=== PATIENT | female | born 1960 | race Two or more races ===

== ENCOUNTER 2023-08-06 16:27 | Emergency (ER) | payer MEDICARE, OTHER ==
[~2023-08-06] VITALS: Ht 165.1 cm; Wt 56.7 kg
[2023-08-06 16:47] VITALS: BP 109/66
[2023-08-06] MEDS ORDERED: oxyCODONE/APAP (5/325 MG) 1 UDTAB TABLET PO ONE (17:30)
[2023-08-06] MEDS ORDERED: HYDROCODONE/APAP 5/325MG TABLET ONE (17:37)
[2023-08-06] MEDS ORDERED: oxyCODONE/APAP (5/325 MG) 1 UDTAB TABLET ONE (17:40)
[2023-08-06 18:27] VITALS: TEMP 98.7; O2SAT 100
== END 2023-08-06 18:28 | disposition home or self-care (01) ==
LOC: ER 16:54
DX: M79.672 Pain in left foot (principal)

== ENCOUNTER 2024-03-03 21:16 | Emergency (ER) | payer MEDICARE, OTHER ==
[~2024-03-03] VITALS: Ht 167.6 cm; Wt 63.5 kg
[2024-03-03 21:21] VITALS: TEMP 98.8
[2024-03-03] MEDS ORDERED: KETOROLAC TROMETHAMINE INJ 30 MG/ML VIAL ONE (21:42)
[2024-03-03] MEDS: KETOROLAC TROMETHAMINE INJ 30 MG/ML VIAL IV ONE (21:55)
[2024-03-04] MEDS ORDERED: LIDOCAINE 1% INJ 50 ML MDV IJ ONE (00:20)
[2024-03-04] MEDS ORDERED: LIDOCAINE /MPF 1% VIAL 5 ML VIAL ONE (00:26)
[2024-03-04 00:48] VITALS: BP 123/81; O2SAT 99
== END 2024-03-04 00:49 ==
LOC: ER 21:23
DX: M25.551 Pain in right hip (principal); Z88.5 Allergy status to narcotic agent; Z88.2 Allergy status to sulfonamides
CPT/HCPCS: 99283; 96372; 73502; J1885; J3490

== ENCOUNTER 2024-12-15 18:47 | Emergency (ER) | payer MEDICARE, OTHER ==
[~2024-12-15] VITALS: Ht 167.6 cm; Wt 65.3 kg
[2024-12-15] MEDS ORDERED: LEVETIRACETAM (500MG) 500 MG/5 ML VIAL IV ONE (19:33)
[2024-12-15] MEDS ORDERED: HYDROMORPHONE 1 MG/1 ML DISP.SYRIN ONE (19:34)
[2024-12-15] MEDS: HYDROMORPHONE 1 MG/1 ML DISP.SYRIN IV ONE (19:36)
[2024-12-15] MEDS: LEVETIRACETAM (500MG) 1,000 MG in IV NS 0.9% 90 ML IV SCH (19:36)
[2024-12-15] MEDS: LORAZEPAM INJ 2 MG/ML VIAL IV ONE (20:17)
[2024-12-15] MEDS ORDERED: LORAZEPAM INJ 2 MG/ML VIAL ONE (20:17)
[2024-12-15 20:50] LABS: BASOPHILS # (AUTO) 0.1 K/uL (0.0-0.2); BASOPHILS % (AUTO) 1.5 % (0.0-2.0); EOSINOPHILS # (AUTO) 0.2 K/uL (0.0-0.7); EOSINOPHILS % (AUTO) 4.1 % (0.0-6.0); HEMATOCRIT 34 % (33-45); HEMOGLOBIN 11.4 g/dL (11.5-14.8); LYMPHOCYTES # (AUTO) 2.1 K/uL (0.8-4.8); LYMPHOCYTES % (AUTO) 38.7 % (20.0-44.0); MEAN CORPUSCULAR HEMOGLOBIN 30 PG (26.0-33.0); MEAN CORPUSCULAR HGB CONC 34 g/dl (31.0-36.0); MEAN CORPUSCULAR VOLUME 87 fL (82-100); MONOCYTES # (AUTO) 0.7 K/uL (0.1-1.30); MONOCYTES % (AUTO) 12.3 % (2.0-12.0); NEUTROPHILS # (AUTO) 2.3 K/uL (1.8-8.9); NEUTROPHILS % (AUTO) 43.4 % (43.0-81.0); PLATELET COUNT (AUTO) 201 K/uL (150-450); RED BLOOD CELL COUNT(AUTO) 3.85 MIL/uL (4.0-5.2); WHITE BLOOD COUNT (AUTO) 5.3 K/uL (4.3-11.0)
[2024-12-15 21:00] LABS: CALCIUM, SERUM 8.2 mg/dL (8.5-10.1); CREATININE 0.8 mg/dL (0.6-1.3); POTASSIUM 4.1 mmol/L (3.5-5.1)
[2024-12-15 22:36] VITALS: BP 120/77; TEMP 98.2; O2SAT 99
== END 2024-12-15 22:37 | disposition home or self-care (01) ==
LOC: ER 18:55
DX: G40.89 Other seizures (principal); G89.29 Other chronic pain; M25.512 Pain in left shoulder; C92.10 Chronic myeloid leukemia, BCR/ABL-positive, not having achieved remission; Z88.2 Allergy status to sulfonamides; Z88.5 Allergy status to narcotic agent
CPT/HCPCS: 99285; 96365; 96375; 73030; 85025; 80048; 83605; 36415; 84146; J1171; J2060; J7030 ×2; J1953 ×2

== ENCOUNTER 2024-12-17 22:27 | Emergency (ER) | payer MEDICARE, OTHER ==
[~2024-12-17] VITALS: Ht 167.6 cm; Wt 61.2 kg
[2024-12-18] MEDS ORDERED: ONDANSETRON HCL/PF 4 MG/2 ML VIAL ONE (00:34)
[2024-12-18] MEDS ORDERED: diphenhydrAMINE HCL 50 MG/ML VIAL ONE (00:34)
[2024-12-18] MEDS ORDERED: KETOROLAC TROMETHAMINE 15 MG/ML VIAL ONE (00:34)
[2024-12-18] MEDS: SUMATRIPTAN SUCCINATE 6 MG/0.5 ML VIAL SQ ONE (00:40)
[2024-12-18] MEDS: KETOROLAC TROMETHAMINE 15 MG/ML VIAL IV ONE (00:40)
[2024-12-18] MEDS: ONDANSETRON HCL/PF - ER 4 MG/2 ML VIAL IV ONE (00:40)
[2024-12-18] MEDS: IV NS 0.9% 1,000 ML BAG IV ONE (00:40)
[2024-12-18] MEDS: diphenhydrAMINE HCL 50 MG/ML VIAL IV ONE (00:40)
[2024-12-18] MEDS ORDERED: ONDA4TAB11 PO (02:53)
[2024-12-18] MEDS ORDERED: NYST5ORA PO (02:53)
[2024-12-18] MEDS ORDERED: SUMA100T16 PO (02:53)
[2024-12-18 03:44] VITALS: BP 158/84; TEMP 98.3; O2SAT 98
== END 2024-12-18 04:02 | disposition home or self-care (01) ==
LOC: ER 22:28
DX: R51.9 Headache, unspecified (principal); Z88.2 Allergy status to sulfonamides; Z88.5 Allergy status to narcotic agent
CPT/HCPCS: 99284; 96374; 96375; J1885; J1200; J2405 ×2

== ENCOUNTER 2024-12-18 15:38 | Emergency (ER) | payer MEDICARE, OTHER ==
[~2024-12-18] VITALS: Ht 167.6 cm; Wt 64.4 kg
[~2024-12-18 15:38] MED LIST: NYST5ORA PO; ONDA4TAB11 PO; SUMA100T16 PO
[2024-12-18] MEDS: LEVETIRACETAM (500MG) 1,000 MG in IV NS 0.9% 90 ML IV SCH (16:00)
[2024-12-18] MEDS: IV NS 0.9% 1,000 ML BAG IV ONE (16:00)
[2024-12-18 16:28] LABS: BASOPHILS # (AUTO) 0.1 K/uL (0.0-0.2); BASOPHILS % (AUTO) 1.4 % (0.0-2.0); EOSINOPHILS # (AUTO) 0.3 K/uL (0.0-0.7); EOSINOPHILS % (AUTO) 6.6 % (0.0-6.0); HEMATOCRIT 33 % (33-45); HEMOGLOBIN 11.2 g/dL (11.5-14.8); LYMPHOCYTES # (AUTO) 1.5 K/uL (0.8-4.8); LYMPHOCYTES % (AUTO) 38.5 % (20.0-44.0); MEAN CORPUSCULAR HEMOGLOBIN 30 PG (26.0-33.0); MEAN CORPUSCULAR HGB CONC 34 g/dl (31.0-36.0); MEAN CORPUSCULAR VOLUME 89 fL (82-100); MONOCYTES # (AUTO) 0.4 K/uL (0.1-1.30); MONOCYTES % (AUTO) 9.2 % (2.0-12.0); NEUTROPHILS # (AUTO) 1.7 K/uL (1.8-8.9); NEUTROPHILS % (AUTO) 44.3 % (43.0-81.0); PLATELET COUNT (AUTO) 185 K/uL (150-450); RED BLOOD CELL COUNT(AUTO) 3.69 MIL/uL (4.0-5.2); RED CELL DISTRIBUTION WIDTH 13.2 % (11.5-15.0); WHITE BLOOD COUNT (AUTO) 3.9 K/uL (4.3-11.0)
[2024-12-18 16:43] LABS: CALCIUM, SERUM 8.6 mg/dL (8.5-10.1); CARBON DIOXIDE 32 mmol/L (21-32); CHLORIDE 103 mmol/L (98-107); GLUCOSE 124 mg/dL (74-106); POTASSIUM 4.6 mmol/L (3.5-5.1); SODIUM SERUM 138 mmol/L (136-145); UREA NITROGEN, BLOOD 17 mg/dL (7-18)
[2024-12-18 16:56] LABS: ALANINE AMINOTRANSFERASE 143 U/L (12-78); ALBUMIN 3.8 g/dL (3.4-5.0); ALKALINE PHOSPHATASE 189 U/L (46-116); ASPARTATE AMINOTRANSFERASE 63 U/L (15-37); BILIRUBIN,DIRECT 0.2 mg/dL (0.0-0.2); BILIRUBIN,TOTAL 0.4 mg/dL (0.2-1.0); NT-PRO BNP 566 pg/mL (0-125); TOTAL PROTEIN, SERUM 7.2 g/dL (6.4-8.2)
[2024-12-18 19:00] VITALS: BP 105/65; O2SAT 99
== END 2024-12-18 20:00 ==
LOC: ER 15:40
DX: G40.909 Epilepsy, unspecified, not intractable, without status epilepticus (principal); Z88.5 Allergy status to narcotic agent; Z88.2 Allergy status to sulfonamides; G62.9 Polyneuropathy, unspecified
CPT/HCPCS: 99285; 96365; 71045; 93005; 85025; 80048; 80076; 36415; 84484; 83880; J7030 ×2; J1953

== ENCOUNTER 2025-03-30 15:40 | Emergency (ER) | payer MEDICARE, OTHER ==
[~2025-03-30] VITALS: Ht 152.4 cm; Wt 64.0 kg
[2025-03-30 15:50] VITALS: TEMP 98.2
[2025-03-30] MEDS ORDERED: KETOROLAC TROMETHAMINE INJ 30 MG/ML VIAL ONE (17:01)
[2025-03-30] MEDS: KETOROLAC TROMETHAMINE INJ 30 MG/ML VIAL IM ONE (17:05)
[2025-03-30] MEDS: PREGABALIN 100 MG CAPSULE PO STA (17:32)
[2025-03-30] MEDS ORDERED: PREGABALIN 25 MG CAPSULE ONE (17:32)
[2025-03-30] MEDS ORDERED: oxyCODONE/APAP (5/325 MG) 1 UDTAB TABLET ONE (17:40)
[2025-03-30] MEDS: oxyCODONE/APAP (5/325 MG) 1 UDTAB TABLET PO ONE (17:41)
[2025-03-30] MEDS: ONDANSETRON HCL/PF 4 MG/2 ML VIAL IVP ONE (17:50)
[2025-03-30] MEDS ORDERED: ONDANSETRON 4 MG TAB.RAPDIS ONE (17:51)
[2025-03-30] MEDS: ONDANSETRON 4 MG TAB.RAPDIS PO ONE (17:51)
[2025-03-30] MEDS ORDERED: LORAZEPAM INJ 2 MG/ML VIAL ONE (18:25)
[2025-03-30] MEDS: LORAZEPAM INJ 2 MG/ML VIAL IM ONE (18:26)
[2025-03-30 19:30] VITALS: BP 151/89; O2SAT 98
[2025-03-30] MEDS ORDERED: CEPH-570 PO (20:05)
[2025-03-30] MEDS ORDERED: IBUP-1490 PO (20:05)
== END 2025-03-30 16:05 | disposition home or self-care (01) ==
LOC: ER 15:43
DX: S50.02XA Contusion of left elbow, initial encounter (principal); G89.29 Other chronic pain; M25.512 Pain in left shoulder; M19.90 Unspecified osteoarthritis, unspecified site; G43.909 Migraine, unspecified, not intractable, without status migrainosus; M79.672 Pain in left foot; M79.671 Pain in right foot; F32.A Depression, unspecified; Z86.69 Personal history of other diseases of the nervous system and sense organs; Z88.2 Allergy status to sulfonamides; Z88.5 Allergy status to narcotic agent; W18.39XA Other fall on same level, initial encounter; Y93.89 Activity, other specified; Y92.89 Other specified places as the place of occurrence of the external cause; Y99.8 Other external cause status
CPT/HCPCS: 99285; 73200; 96372; 73080; 73630; 73130; 73030; J1885; J2060; Q0162